=== PATIENT | male | born 1940 | race Caucasian/White ===

== ENCOUNTER → 2017-06-14 | Outpatient (CLI) | payer OTHER | LOC: HYPER 06-13 10:16 | DX: E11.621 Type 2 diabetes mellitus with foot ulcer (principal); L97.521 Non-pressure chronic ulcer of other part of left foot limited to breakdown of skin; E11.610 Type 2 diabetes mellitus with diabetic neuropathic arthropathy; E11.42 Type 2 diabetes mellitus with diabetic polyneuropathy; E11.36 Type 2 diabetes mellitus with diabetic cataract; Z87.891 Personal history of nicotine dependence; Z79.4 Long term (current) use of insulin ==

== ENCOUNTER → 2017-06-27 | Outpatient (CLI) | payer OTHER | LOC: HYPER 07:04 | DX: E11.621 Type 2 diabetes mellitus with foot ulcer (principal); L97.521 Non-pressure chronic ulcer of other part of left foot limited to breakdown of skin; S90.822A Blister (nonthermal), left foot, initial encounter; E11.610 Type 2 diabetes mellitus with diabetic neuropathic arthropathy; E11.36 Type 2 diabetes mellitus with diabetic cataract; Z79.4 Long term (current) use of insulin; Z87.891 Personal history of nicotine dependence; X58.XXXA Exposure to other specified factors, initial encounter; Y93.89 Activity, other specified; Y92.89 Other specified places as the place of occurrence of the external cause; Y99.8 Other external cause status ==

== ENCOUNTER → 2017-07-11 | Outpatient (CLI) | payer OTHER | LOC: HYPER 06:42 | DX: E11.621 Type 2 diabetes mellitus with foot ulcer (principal); L97.521 Non-pressure chronic ulcer of other part of left foot limited to breakdown of skin; E11.610 Type 2 diabetes mellitus with diabetic neuropathic arthropathy; Z79.4 Long term (current) use of insulin; E11.36 Type 2 diabetes mellitus with diabetic cataract; Z87.891 Personal history of nicotine dependence ==

== ENCOUNTER → 2017-08-08 | Outpatient (CLI) | payer OTHER | LOC: HYPER 06:48 | DX: E11.621 Type 2 diabetes mellitus with foot ulcer (principal); L97.521 Non-pressure chronic ulcer of other part of left foot limited to breakdown of skin; E11.610 Type 2 diabetes mellitus with diabetic neuropathic arthropathy; E11.36 Type 2 diabetes mellitus with diabetic cataract; Z79.4 Long term (current) use of insulin; Z86.73 Personal history of transient ischemic attack (TIA), and cerebral infarction without residual deficits; Z87.891 Personal history of nicotine dependence ==

== ENCOUNTER → 2017-08-29 | Outpatient (CLI) | payer OTHER | LOC: HYPER 07:00 | DX: E11.621 Type 2 diabetes mellitus with foot ulcer (principal); L97.521 Non-pressure chronic ulcer of other part of left foot limited to breakdown of skin; S90.521A Blister (nonthermal), right ankle, initial encounter; X58.XXXD Exposure to other specified factors, subsequent encounter; E11.610 Type 2 diabetes mellitus with diabetic neuropathic arthropathy; E11.36 Type 2 diabetes mellitus with diabetic cataract; Z79.4 Long term (current) use of insulin; S90.822D Blister (nonthermal), left foot, subsequent encounter; X58.XXXA Exposure to other specified factors, initial encounter; Y93.89 Activity, other specified; Y92.89 Other specified places as the place of occurrence of the external cause; Y99.8 Other external cause status; Z98.49 Cataract extraction status, unspecified eye; Z87.891 Personal history of nicotine dependence ==

== ENCOUNTER → 2017-09-25 | Outpatient (CLI) | payer OTHER | LOC: HYPER 06:56 | DX: E11.621 Type 2 diabetes mellitus with foot ulcer (principal); L97.521 Non-pressure chronic ulcer of other part of left foot limited to breakdown of skin; E11.610 Type 2 diabetes mellitus with diabetic neuropathic arthropathy; E11.36 Type 2 diabetes mellitus with diabetic cataract; Z79.4 Long term (current) use of insulin; Z86.73 Personal history of transient ischemic attack (TIA), and cerebral infarction without residual deficits; Z87.891 Personal history of nicotine dependence ==

== ENCOUNTER → 2017-10-30 | Outpatient (CLI) | payer OTHER | LOC: HYPER 07:01 | DX: E11.621 Type 2 diabetes mellitus with foot ulcer (principal); L97.521 Non-pressure chronic ulcer of other part of left foot limited to breakdown of skin; E11.610 Type 2 diabetes mellitus with diabetic neuropathic arthropathy; E11.42 Type 2 diabetes mellitus with diabetic polyneuropathy; E11.36 Type 2 diabetes mellitus with diabetic cataract; L03.116 Cellulitis of left lower limb; Z98.49 Cataract extraction status, unspecified eye; Z87.891 Personal history of nicotine dependence; Z79.4 Long term (current) use of insulin ==

== ENCOUNTER → 2018-10-10 | Outpatient (CLI) | payer OTHER | LOC: HYPER 06:32 | DX: E11.621 Type 2 diabetes mellitus with foot ulcer (principal); L97.516 Non-pressure chronic ulcer of other part of right foot with bone involvement without evidence of necrosis; S90.414A Abrasion, right lesser toe(s), initial encounter; E11.610 Type 2 diabetes mellitus with diabetic neuropathic arthropathy; E11.36 Type 2 diabetes mellitus with diabetic cataract; E11.69 Type 2 diabetes mellitus with other specified complication; M86.8X8 Other osteomyelitis, other site; E11.42 Type 2 diabetes mellitus with diabetic polyneuropathy; I25.10 Atherosclerotic heart disease of native coronary artery without angina pectoris; Z87.891 Personal history of nicotine dependence; Z79.4 Long term (current) use of insulin; Z98.49 Cataract extraction status, unspecified eye; Z79.82 Long term (current) use of aspirin; X58.XXXA Exposure to other specified factors, initial encounter; Y93.89 Activity, other specified; Y92.89 Other specified places as the place of occurrence of the external cause; Y99.8 Other external cause status ==

== ENCOUNTER → 2018-10-17 | Outpatient (CLI) | payer OTHER | LOC: HYPER 06:55 | DX: E11.621 Type 2 diabetes mellitus with foot ulcer (principal); L97.512 Non-pressure chronic ulcer of other part of right foot with fat layer exposed; S90.414D Abrasion, right lesser toe(s), subsequent encounter; E11.610 Type 2 diabetes mellitus with diabetic neuropathic arthropathy; E11.42 Type 2 diabetes mellitus with diabetic polyneuropathy; E11.36 Type 2 diabetes mellitus with diabetic cataract; E11.69 Type 2 diabetes mellitus with other specified complication; M86.8X8 Other osteomyelitis, other site; I25.10 Atherosclerotic heart disease of native coronary artery without angina pectoris; Z79.4 Long term (current) use of insulin; Z87.891 Personal history of nicotine dependence; X58.XXXD Exposure to other specified factors, subsequent encounter ==

== ENCOUNTER → 2018-10-28 | Outpatient (CLI) | payer OTHER | LOC: HYPER 07:48 | DX: E11.621 Type 2 diabetes mellitus with foot ulcer (principal); L97.512 Non-pressure chronic ulcer of other part of right foot with fat layer exposed; E11.610 Type 2 diabetes mellitus with diabetic neuropathic arthropathy; E11.42 Type 2 diabetes mellitus with diabetic polyneuropathy; E11.36 Type 2 diabetes mellitus with diabetic cataract; E11.69 Type 2 diabetes mellitus with other specified complication; M86.8X7 Other osteomyelitis, ankle and foot; Z79.4 Long term (current) use of insulin; Z87.891 Personal history of nicotine dependence ==

== ENCOUNTER → 2018-11-05 | Outpatient (CLI) | payer OTHER | LOC: HYPER 06:42 | DX: E11.621 Type 2 diabetes mellitus with foot ulcer (principal); L97.516 Non-pressure chronic ulcer of other part of right foot with bone involvement without evidence of necrosis; S90.821A Blister (nonthermal), right foot, initial encounter; L84 Corns and callosities; E11.610 Type 2 diabetes mellitus with diabetic neuropathic arthropathy; E11.36 Type 2 diabetes mellitus with diabetic cataract; E11.69 Type 2 diabetes mellitus with other specified complication; M86.8X8 Other osteomyelitis, other site; I25.10 Atherosclerotic heart disease of native coronary artery without angina pectoris; Z79.4 Long term (current) use of insulin; Z87.891 Personal history of nicotine dependence; X58.XXXA Exposure to other specified factors, initial encounter; Y93.89 Activity, other specified; Y92.89 Other specified places as the place of occurrence of the external cause; Y99.8 Other external cause status ==

== ENCOUNTER → 2018-11-19 | Outpatient (CLI) | payer OTHER | LOC: HYPER 06:40 → RAD 06:40 → HYPER 15:21 | DX: E11.621 Type 2 diabetes mellitus with foot ulcer (principal); L97.514 Non-pressure chronic ulcer of other part of right foot with necrosis of bone; E11.610 Type 2 diabetes mellitus with diabetic neuropathic arthropathy; E11.69 Type 2 diabetes mellitus with other specified complication; M86.371 Chronic multifocal osteomyelitis, right ankle and foot; L02.611 Cutaneous abscess of right foot; E11.36 Type 2 diabetes mellitus with diabetic cataract; Z87.891 Personal history of nicotine dependence; Z79.4 Long term (current) use of insulin ==

== ENCOUNTER → 2018-11-20 | Outpatient (CLI) | payer OTHER | LOC: HYPER 06:37 | DX: E11.621 Type 2 diabetes mellitus with foot ulcer (principal); L97.514 Non-pressure chronic ulcer of other part of right foot with necrosis of bone; L02.611 Cutaneous abscess of right foot; E11.69 Type 2 diabetes mellitus with other specified complication; M86.371 Chronic multifocal osteomyelitis, right ankle and foot; E11.610 Type 2 diabetes mellitus with diabetic neuropathic arthropathy; E11.36 Type 2 diabetes mellitus with diabetic cataract; I25.10 Atherosclerotic heart disease of native coronary artery without angina pectoris; Z79.4 Long term (current) use of insulin; Z87.891 Personal history of nicotine dependence ==

== ENCOUNTER → 2018-11-21 | Outpatient (CLI) | payer OTHER | LOC: HYPER 06:50 | DX: E11.621 Type 2 diabetes mellitus with foot ulcer (principal); L97.514 Non-pressure chronic ulcer of other part of right foot with necrosis of bone; L02.611 Cutaneous abscess of right foot; E11.610 Type 2 diabetes mellitus with diabetic neuropathic arthropathy; E11.69 Type 2 diabetes mellitus with other specified complication; M86.371 Chronic multifocal osteomyelitis, right ankle and foot; E11.36 Type 2 diabetes mellitus with diabetic cataract; I25.10 Atherosclerotic heart disease of native coronary artery without angina pectoris; Z87.891 Personal history of nicotine dependence; Z79.4 Long term (current) use of insulin ==

== ENCOUNTER → 2018-11-22 | Outpatient (CLI) | payer OTHER | LOC: HYPER 08:00 | DX: E11.621 Type 2 diabetes mellitus with foot ulcer (principal); L97.514 Non-pressure chronic ulcer of other part of right foot with necrosis of bone; L02.611 Cutaneous abscess of right foot; E11.610 Type 2 diabetes mellitus with diabetic neuropathic arthropathy; E11.69 Type 2 diabetes mellitus with other specified complication; M86.371 Chronic multifocal osteomyelitis, right ankle and foot; E11.36 Type 2 diabetes mellitus with diabetic cataract; I25.10 Atherosclerotic heart disease of native coronary artery without angina pectoris; Z87.891 Personal history of nicotine dependence; Z79.4 Long term (current) use of insulin ==

== ENCOUNTER → 2018-11-25 | Outpatient (CLI) | payer OTHER | LOC: HYPER 06:39 | DX: E11.621 Type 2 diabetes mellitus with foot ulcer (principal); L97.514 Non-pressure chronic ulcer of other part of right foot with necrosis of bone; L02.611 Cutaneous abscess of right foot; E11.69 Type 2 diabetes mellitus with other specified complication; M86.371 Chronic multifocal osteomyelitis, right ankle and foot; E11.610 Type 2 diabetes mellitus with diabetic neuropathic arthropathy; E11.36 Type 2 diabetes mellitus with diabetic cataract; I25.10 Atherosclerotic heart disease of native coronary artery without angina pectoris; Z87.891 Personal history of nicotine dependence; Z79.4 Long term (current) use of insulin ==

== ENCOUNTER → 2018-11-26 | Outpatient (CLI) | payer OTHER | LOC: HYPER 06:50 | DX: E11.621 Type 2 diabetes mellitus with foot ulcer (principal); L97.514 Non-pressure chronic ulcer of other part of right foot with necrosis of bone; L02.611 Cutaneous abscess of right foot; E11.610 Type 2 diabetes mellitus with diabetic neuropathic arthropathy; E11.69 Type 2 diabetes mellitus with other specified complication; M86.371 Chronic multifocal osteomyelitis, right ankle and foot; E11.36 Type 2 diabetes mellitus with diabetic cataract; Z79.4 Long term (current) use of insulin; Z87.891 Personal history of nicotine dependence ==

== ENCOUNTER → 2018-11-27 | Outpatient (CLI) | payer OTHER | LOC: HYPER 06:52 | DX: E11.621 Type 2 diabetes mellitus with foot ulcer (principal); L97.514 Non-pressure chronic ulcer of other part of right foot with necrosis of bone; L02.611 Cutaneous abscess of right foot; E11.610 Type 2 diabetes mellitus with diabetic neuropathic arthropathy; E11.69 Type 2 diabetes mellitus with other specified complication; M86.371 Chronic multifocal osteomyelitis, right ankle and foot; E11.36 Type 2 diabetes mellitus with diabetic cataract; I25.10 Atherosclerotic heart disease of native coronary artery without angina pectoris; Z87.891 Personal history of nicotine dependence; Z79.4 Long term (current) use of insulin ==

== ENCOUNTER → 2018-11-28 | Outpatient (CLI) | payer OTHER | LOC: HYPER 06:48 | DX: E11.621 Type 2 diabetes mellitus with foot ulcer (principal); L97.514 Non-pressure chronic ulcer of other part of right foot with necrosis of bone; E11.610 Type 2 diabetes mellitus with diabetic neuropathic arthropathy; E11.69 Type 2 diabetes mellitus with other specified complication; M86.371 Chronic multifocal osteomyelitis, right ankle and foot; E11.36 Type 2 diabetes mellitus with diabetic cataract; L02.611 Cutaneous abscess of right foot; Z87.891 Personal history of nicotine dependence; Z79.4 Long term (current) use of insulin ==

== ENCOUNTER → 2018-11-29 | Outpatient (CLI) | payer OTHER | LOC: HYPER 06:47 | DX: E11.621 Type 2 diabetes mellitus with foot ulcer (principal); L97.514 Non-pressure chronic ulcer of other part of right foot with necrosis of bone; L02.611 Cutaneous abscess of right foot; E11.610 Type 2 diabetes mellitus with diabetic neuropathic arthropathy; E11.69 Type 2 diabetes mellitus with other specified complication; M86.371 Chronic multifocal osteomyelitis, right ankle and foot; E11.36 Type 2 diabetes mellitus with diabetic cataract; Z87.891 Personal history of nicotine dependence; Z79.4 Long term (current) use of insulin ==

== ENCOUNTER → 2018-12-03 | Outpatient (CLI) | payer OTHER | LOC: HYPER 07:01 | DX: E11.621 Type 2 diabetes mellitus with foot ulcer (principal); L97.514 Non-pressure chronic ulcer of other part of right foot with necrosis of bone; L02.611 Cutaneous abscess of right foot; E11.610 Type 2 diabetes mellitus with diabetic neuropathic arthropathy; E11.69 Type 2 diabetes mellitus with other specified complication; M86.371 Chronic multifocal osteomyelitis, right ankle and foot; E11.36 Type 2 diabetes mellitus with diabetic cataract; Z87.891 Personal history of nicotine dependence; Z79.4 Long term (current) use of insulin ==

== ENCOUNTER → 2018-12-04 | Outpatient (CLI) | payer OTHER | LOC: HYPER 06:57 | DX: E11.621 Type 2 diabetes mellitus with foot ulcer (principal); L97.514 Non-pressure chronic ulcer of other part of right foot with necrosis of bone; L02.611 Cutaneous abscess of right foot; E11.610 Type 2 diabetes mellitus with diabetic neuropathic arthropathy; E11.69 Type 2 diabetes mellitus with other specified complication; M86.371 Chronic multifocal osteomyelitis, right ankle and foot; E11.36 Type 2 diabetes mellitus with diabetic cataract; Z87.891 Personal history of nicotine dependence; Z79.4 Long term (current) use of insulin ==

== ENCOUNTER → 2018-12-05 | Outpatient (CLI) | payer OTHER | LOC: HYPER 07:01 | DX: E11.621 Type 2 diabetes mellitus with foot ulcer (principal); L97.514 Non-pressure chronic ulcer of other part of right foot with necrosis of bone; E11.69 Type 2 diabetes mellitus with other specified complication; M86.371 Chronic multifocal osteomyelitis, right ankle and foot; L02.611 Cutaneous abscess of right foot; E11.610 Type 2 diabetes mellitus with diabetic neuropathic arthropathy; E11.36 Type 2 diabetes mellitus with diabetic cataract; Z87.891 Personal history of nicotine dependence; Z79.4 Long term (current) use of insulin ==

== ENCOUNTER → 2018-12-06 | Outpatient (CLI) | payer OTHER | LOC: HYPER 07:02 | DX: E11.621 Type 2 diabetes mellitus with foot ulcer (principal); L97.514 Non-pressure chronic ulcer of other part of right foot with necrosis of bone; L02.611 Cutaneous abscess of right foot; E11.610 Type 2 diabetes mellitus with diabetic neuropathic arthropathy; E11.69 Type 2 diabetes mellitus with other specified complication; M86.371 Chronic multifocal osteomyelitis, right ankle and foot; E11.36 Type 2 diabetes mellitus with diabetic cataract; I25.10 Atherosclerotic heart disease of native coronary artery without angina pectoris; Z87.891 Personal history of nicotine dependence; Z79.4 Long term (current) use of insulin ==

== ENCOUNTER → 2018-12-09 | Outpatient (CLI) | payer OTHER | LOC: HYPER 06:53 | DX: E11.621 Type 2 diabetes mellitus with foot ulcer (principal); L97.514 Non-pressure chronic ulcer of other part of right foot with necrosis of bone; L02.611 Cutaneous abscess of right foot; E11.610 Type 2 diabetes mellitus with diabetic neuropathic arthropathy; E11.69 Type 2 diabetes mellitus with other specified complication; M86.371 Chronic multifocal osteomyelitis, right ankle and foot; E11.36 Type 2 diabetes mellitus with diabetic cataract; Z87.891 Personal history of nicotine dependence; Z79.4 Long term (current) use of insulin ==

== ENCOUNTER → 2018-12-10 | Outpatient (CLI) | payer OTHER | LOC: HYPER 06:44 | DX: E11.621 Type 2 diabetes mellitus with foot ulcer (principal); L97.514 Non-pressure chronic ulcer of other part of right foot with necrosis of bone; L02.611 Cutaneous abscess of right foot; E11.610 Type 2 diabetes mellitus with diabetic neuropathic arthropathy; E11.69 Type 2 diabetes mellitus with other specified complication; M86.371 Chronic multifocal osteomyelitis, right ankle and foot; E11.36 Type 2 diabetes mellitus with diabetic cataract; I25.10 Atherosclerotic heart disease of native coronary artery without angina pectoris; Z79.4 Long term (current) use of insulin; Z87.891 Personal history of nicotine dependence ==

== ENCOUNTER → 2018-12-11 | Outpatient (CLI) | payer OTHER | LOC: HYPER 06:52 | DX: E11.621 Type 2 diabetes mellitus with foot ulcer (principal); L97.514 Non-pressure chronic ulcer of other part of right foot with necrosis of bone; E11.610 Type 2 diabetes mellitus with diabetic neuropathic arthropathy; E11.69 Type 2 diabetes mellitus with other specified complication; M86.371 Chronic multifocal osteomyelitis, right ankle and foot; L02.611 Cutaneous abscess of right foot; E11.36 Type 2 diabetes mellitus with diabetic cataract; Z87.891 Personal history of nicotine dependence; Z79.4 Long term (current) use of insulin ==

== ENCOUNTER → 2018-12-12 | Outpatient (CLI) | payer OTHER | LOC: HYPER 06:40 | DX: E11.621 Type 2 diabetes mellitus with foot ulcer (principal); L97.514 Non-pressure chronic ulcer of other part of right foot with necrosis of bone; L02.611 Cutaneous abscess of right foot; E11.610 Type 2 diabetes mellitus with diabetic neuropathic arthropathy; E11.69 Type 2 diabetes mellitus with other specified complication; M86.371 Chronic multifocal osteomyelitis, right ankle and foot; E11.36 Type 2 diabetes mellitus with diabetic cataract; Z87.891 Personal history of nicotine dependence; Z79.4 Long term (current) use of insulin ==

== ENCOUNTER → 2018-12-13 | Outpatient (CLI) | payer OTHER | LOC: HYPER 06:59 | DX: E11.621 Type 2 diabetes mellitus with foot ulcer (principal); L97.514 Non-pressure chronic ulcer of other part of right foot with necrosis of bone; L02.611 Cutaneous abscess of right foot; E11.610 Type 2 diabetes mellitus with diabetic neuropathic arthropathy; E11.69 Type 2 diabetes mellitus with other specified complication; M86.371 Chronic multifocal osteomyelitis, right ankle and foot; E11.36 Type 2 diabetes mellitus with diabetic cataract; Z87.891 Personal history of nicotine dependence; Z79.4 Long term (current) use of insulin ==

== ENCOUNTER → 2018-12-16 | Outpatient (CLI) | payer OTHER | LOC: HYPER 06:47 | DX: E11.621 Type 2 diabetes mellitus with foot ulcer (principal); L97.514 Non-pressure chronic ulcer of other part of right foot with necrosis of bone; L02.611 Cutaneous abscess of right foot; E11.610 Type 2 diabetes mellitus with diabetic neuropathic arthropathy; E11.69 Type 2 diabetes mellitus with other specified complication; M86.371 Chronic multifocal osteomyelitis, right ankle and foot; E11.36 Type 2 diabetes mellitus with diabetic cataract; Z87.891 Personal history of nicotine dependence; Z79.4 Long term (current) use of insulin ==

== ENCOUNTER → 2018-12-17 | Outpatient (CLI) | payer OTHER | LOC: HYPER 07:10 | DX: E11.621 Type 2 diabetes mellitus with foot ulcer (principal); L97.514 Non-pressure chronic ulcer of other part of right foot with necrosis of bone; L02.611 Cutaneous abscess of right foot; E11.610 Type 2 diabetes mellitus with diabetic neuropathic arthropathy; E11.69 Type 2 diabetes mellitus with other specified complication; M86.371 Chronic multifocal osteomyelitis, right ankle and foot; E11.36 Type 2 diabetes mellitus with diabetic cataract; Z87.891 Personal history of nicotine dependence; Z79.4 Long term (current) use of insulin ==

== ENCOUNTER → 2019-01-02 | Outpatient (CLI) | payer OTHER | LOC: HYPER 12-26 07:21 | DX: E11.621 Type 2 diabetes mellitus with foot ulcer (principal); L97.514 Non-pressure chronic ulcer of other part of right foot with necrosis of bone; E11.42 Type 2 diabetes mellitus with diabetic polyneuropathy; E11.610 Type 2 diabetes mellitus with diabetic neuropathic arthropathy; E11.69 Type 2 diabetes mellitus with other specified complication; M86.371 Chronic multifocal osteomyelitis, right ankle and foot; E11.36 Type 2 diabetes mellitus with diabetic cataract; Z87.891 Personal history of nicotine dependence; Z79.4 Long term (current) use of insulin ==

== ENCOUNTER → 2019-02-10 | Outpatient (CLI) | payer OTHER | LOC: HYPER 04:56 | DX: E11.621 Type 2 diabetes mellitus with foot ulcer (principal); L97.514 Non-pressure chronic ulcer of other part of right foot with necrosis of bone; L97.522 Non-pressure chronic ulcer of other part of left foot with fat layer exposed; E11.610 Type 2 diabetes mellitus with diabetic neuropathic arthropathy; E11.69 Type 2 diabetes mellitus with other specified complication; M86.371 Chronic multifocal osteomyelitis, right ankle and foot; L02.611 Cutaneous abscess of right foot; E11.36 Type 2 diabetes mellitus with diabetic cataract; L84 Corns and callosities; Z79.4 Long term (current) use of insulin; Z87.891 Personal history of nicotine dependence ==

== ENCOUNTER → 2019-03-03 | Outpatient (CLI) | payer OTHER | LOC: HYPER 12:52 | DX: E11.621 Type 2 diabetes mellitus with foot ulcer (principal); L97.514 Non-pressure chronic ulcer of other part of right foot with necrosis of bone; L97.522 Non-pressure chronic ulcer of other part of left foot with fat layer exposed; E11.610 Type 2 diabetes mellitus with diabetic neuropathic arthropathy; E11.40 Type 2 diabetes mellitus with diabetic neuropathy, unspecified; E11.69 Type 2 diabetes mellitus with other specified complication; M86.371 Chronic multifocal osteomyelitis, right ankle and foot; E11.36 Type 2 diabetes mellitus with diabetic cataract; L84 Corns and callosities; Z79.4 Long term (current) use of insulin; Z87.891 Personal history of nicotine dependence ==

== ENCOUNTER → 2019-03-28 | Outpatient (CLI) | payer OTHER | LOC: HYPER 08:43 | DX: E11.621 Type 2 diabetes mellitus with foot ulcer (principal); L97.514 Non-pressure chronic ulcer of other part of right foot with necrosis of bone; L97.522 Non-pressure chronic ulcer of other part of left foot with fat layer exposed; L02.611 Cutaneous abscess of right foot; E11.42 Type 2 diabetes mellitus with diabetic polyneuropathy; L84 Corns and callosities; E11.610 Type 2 diabetes mellitus with diabetic neuropathic arthropathy; M86.371 Chronic multifocal osteomyelitis, right ankle and foot; E11.36 Type 2 diabetes mellitus with diabetic cataract; Z87.891 Personal history of nicotine dependence; Z79.4 Long term (current) use of insulin ==

== ENCOUNTER → 2019-04-08 | Outpatient (CLI) | payer OTHER | LOC: HYPER 08:47 | DX: E11.621 Type 2 diabetes mellitus with foot ulcer (principal); L97.514 Non-pressure chronic ulcer of other part of right foot with necrosis of bone; L97.522 Non-pressure chronic ulcer of other part of left foot with fat layer exposed; L02.611 Cutaneous abscess of right foot; E11.42 Type 2 diabetes mellitus with diabetic polyneuropathy; L84 Corns and callosities; E11.610 Type 2 diabetes mellitus with diabetic neuropathic arthropathy; E11.69 Type 2 diabetes mellitus with other specified complication; M86.371 Chronic multifocal osteomyelitis, right ankle and foot; I25.10 Atherosclerotic heart disease of native coronary artery without angina pectoris; E11.36 Type 2 diabetes mellitus with diabetic cataract; Z87.891 Personal history of nicotine dependence; Z79.4 Long term (current) use of insulin; Z79.82 Long term (current) use of aspirin ==

== ENCOUNTER → 2019-04-25 | Outpatient (CLI) | payer OTHER | LOC: HYPER 10:29 | DX: E11.621 Type 2 diabetes mellitus with foot ulcer (principal); L97.514 Non-pressure chronic ulcer of other part of right foot with necrosis of bone; L97.522 Non-pressure chronic ulcer of other part of left foot with fat layer exposed; L02.611 Cutaneous abscess of right foot; L84 Corns and callosities; E11.610 Type 2 diabetes mellitus with diabetic neuropathic arthropathy; S90.821D Blister (nonthermal), right foot, subsequent encounter; E11.69 Type 2 diabetes mellitus with other specified complication; M86.371 Chronic multifocal osteomyelitis, right ankle and foot; E11.36 Type 2 diabetes mellitus with diabetic cataract; I25.10 Atherosclerotic heart disease of native coronary artery without angina pectoris; Z87.891 Personal history of nicotine dependence; Z79.4 Long term (current) use of insulin; X58.XXXD Exposure to other specified factors, subsequent encounter ==

== ENCOUNTER → 2019-05-05 | Outpatient (CLI) | payer OTHER | LOC: HYPER 13:16 | DX: E11.621 Type 2 diabetes mellitus with foot ulcer (principal); L97.514 Non-pressure chronic ulcer of other part of right foot with necrosis of bone; L97.522 Non-pressure chronic ulcer of other part of left foot with fat layer exposed; E11.610 Type 2 diabetes mellitus with diabetic neuropathic arthropathy; L02.611 Cutaneous abscess of right foot; L84 Corns and callosities; E11.42 Type 2 diabetes mellitus with diabetic polyneuropathy; E11.69 Type 2 diabetes mellitus with other specified complication; M86.371 Chronic multifocal osteomyelitis, right ankle and foot; E11.36 Type 2 diabetes mellitus with diabetic cataract; Z87.891 Personal history of nicotine dependence; Z79.4 Long term (current) use of insulin; Z79.82 Long term (current) use of aspirin ==

== ENCOUNTER → 2019-05-27 | Outpatient (CLI) | payer OTHER | LOC: HYPER 10:04 | DX: E11.621 Type 2 diabetes mellitus with foot ulcer (principal); L97.514 Non-pressure chronic ulcer of other part of right foot with necrosis of bone; L02.612 Cutaneous abscess of left foot; L02.611 Cutaneous abscess of right foot; E11.610 Type 2 diabetes mellitus with diabetic neuropathic arthropathy; E11.42 Type 2 diabetes mellitus with diabetic polyneuropathy; L84 Corns and callosities; E11.69 Type 2 diabetes mellitus with other specified complication; M86.371 Chronic multifocal osteomyelitis, right ankle and foot; E11.36 Type 2 diabetes mellitus with diabetic cataract; Z87.891 Personal history of nicotine dependence; Z79.4 Long term (current) use of insulin; Z79.82 Long term (current) use of aspirin ==

== ENCOUNTER → 2019-06-04 | Outpatient (CLI) | payer OTHER | LOC: HYPER 09:28 | DX: E11.621 Type 2 diabetes mellitus with foot ulcer (principal); L97.514 Non-pressure chronic ulcer of other part of right foot with necrosis of bone; L97.522 Non-pressure chronic ulcer of other part of left foot with fat layer exposed; L03.116 Cellulitis of left lower limb; L02.611 Cutaneous abscess of right foot; E11.42 Type 2 diabetes mellitus with diabetic polyneuropathy; L84 Corns and callosities; E11.610 Type 2 diabetes mellitus with diabetic neuropathic arthropathy; E11.69 Type 2 diabetes mellitus with other specified complication; M86.371 Chronic multifocal osteomyelitis, right ankle and foot; E11.36 Type 2 diabetes mellitus with diabetic cataract; Z87.891 Personal history of nicotine dependence; Z79.4 Long term (current) use of insulin ==

== ENCOUNTER → 2019-06-13 | Outpatient (CLI) | payer OTHER | LOC: HYPER 10:10 | DX: E11.621 Type 2 diabetes mellitus with foot ulcer (principal); L97.514 Non-pressure chronic ulcer of other part of right foot with necrosis of bone; L97.522 Non-pressure chronic ulcer of other part of left foot with fat layer exposed; L02.611 Cutaneous abscess of right foot; E11.42 Type 2 diabetes mellitus with diabetic polyneuropathy; L84 Corns and callosities; E11.610 Type 2 diabetes mellitus with diabetic neuropathic arthropathy; E11.69 Type 2 diabetes mellitus with other specified complication; M86.371 Chronic multifocal osteomyelitis, right ankle and foot; E11.36 Type 2 diabetes mellitus with diabetic cataract; Z79.4 Long term (current) use of insulin; Z87.891 Personal history of nicotine dependence; Z79.82 Long term (current) use of aspirin ==

== ENCOUNTER → 2019-06-23 | Outpatient (CLI) | payer OTHER | LOC: HYPER 10:00 | DX: E11.621 Type 2 diabetes mellitus with foot ulcer (principal); L97.514 Non-pressure chronic ulcer of other part of right foot with necrosis of bone; L97.522 Non-pressure chronic ulcer of other part of left foot with fat layer exposed; L02.611 Cutaneous abscess of right foot; E11.610 Type 2 diabetes mellitus with diabetic neuropathic arthropathy; E11.42 Type 2 diabetes mellitus with diabetic polyneuropathy; L84 Corns and callosities; E11.69 Type 2 diabetes mellitus with other specified complication; M86.371 Chronic multifocal osteomyelitis, right ankle and foot; E11.36 Type 2 diabetes mellitus with diabetic cataract; Z87.891 Personal history of nicotine dependence; Z79.4 Long term (current) use of insulin ==

== ENCOUNTER → 2019-06-30 | Outpatient (CLI) | payer OTHER | LOC: HYPER 10:28 | DX: E11.621 Type 2 diabetes mellitus with foot ulcer (principal); L97.514 Non-pressure chronic ulcer of other part of right foot with necrosis of bone; L97.522 Non-pressure chronic ulcer of other part of left foot with fat layer exposed; L02.611 Cutaneous abscess of right foot; L84 Corns and callosities; S90.821D Blister (nonthermal), right foot, subsequent encounter; E11.610 Type 2 diabetes mellitus with diabetic neuropathic arthropathy; E11.69 Type 2 diabetes mellitus with other specified complication; M86.371 Chronic multifocal osteomyelitis, right ankle and foot; E11.36 Type 2 diabetes mellitus with diabetic cataract; E11.42 Type 2 diabetes mellitus with diabetic polyneuropathy; I25.10 Atherosclerotic heart disease of native coronary artery without angina pectoris; Z87.891 Personal history of nicotine dependence; Z79.4 Long term (current) use of insulin ==

== ENCOUNTER → 2019-07-16 | Outpatient (CLI) | payer OTHER | LOC: HYPER 09:56 | DX: E11.621 Type 2 diabetes mellitus with foot ulcer (principal); L97.514 Non-pressure chronic ulcer of other part of right foot with necrosis of bone; L97.522 Non-pressure chronic ulcer of other part of left foot with fat layer exposed; S90.821D Blister (nonthermal), right foot, subsequent encounter; L02.611 Cutaneous abscess of right foot; L84 Corns and callosities; E11.610 Type 2 diabetes mellitus with diabetic neuropathic arthropathy; E11.69 Type 2 diabetes mellitus with other specified complication; M86.371 Chronic multifocal osteomyelitis, right ankle and foot; E11.36 Type 2 diabetes mellitus with diabetic cataract; E11.42 Type 2 diabetes mellitus with diabetic polyneuropathy; I25.10 Atherosclerotic heart disease of native coronary artery without angina pectoris; Z87.891 Personal history of nicotine dependence; Z79.4 Long term (current) use of insulin; X58.XXXD Exposure to other specified factors, subsequent encounter ==

== ENCOUNTER → 2019-07-29 | Outpatient (CLI) | payer OTHER | LOC: HYPER 10:27 | DX: E11.621 Type 2 diabetes mellitus with foot ulcer (principal); L97.514 Non-pressure chronic ulcer of other part of right foot with necrosis of bone; L97.522 Non-pressure chronic ulcer of other part of left foot with fat layer exposed; S90.821D Blister (nonthermal), right foot, subsequent encounter; L02.611 Cutaneous abscess of right foot; L84 Corns and callosities; E11.610 Type 2 diabetes mellitus with diabetic neuropathic arthropathy; E11.69 Type 2 diabetes mellitus with other specified complication; M86.371 Chronic multifocal osteomyelitis, right ankle and foot; E11.42 Type 2 diabetes mellitus with diabetic polyneuropathy; E11.36 Type 2 diabetes mellitus with diabetic cataract; I25.10 Atherosclerotic heart disease of native coronary artery without angina pectoris; Z87.891 Personal history of nicotine dependence; Z79.4 Long term (current) use of insulin; X58.XXXD Exposure to other specified factors, subsequent encounter ==

== ENCOUNTER → 2019-08-12 | Outpatient (CLI) | payer OTHER | LOC: HYPER 10:56 | DX: E11.621 Type 2 diabetes mellitus with foot ulcer (principal); L97.514 Non-pressure chronic ulcer of other part of right foot with necrosis of bone; L97.521 Non-pressure chronic ulcer of other part of left foot limited to breakdown of skin; S90.821D Blister (nonthermal), right foot, subsequent encounter; L02.611 Cutaneous abscess of right foot; L84 Corns and callosities; E11.610 Type 2 diabetes mellitus with diabetic neuropathic arthropathy; E11.69 Type 2 diabetes mellitus with other specified complication; M86.371 Chronic multifocal osteomyelitis, right ankle and foot; E11.36 Type 2 diabetes mellitus with diabetic cataract; E11.42 Type 2 diabetes mellitus with diabetic polyneuropathy; I25.10 Atherosclerotic heart disease of native coronary artery without angina pectoris; Z87.891 Personal history of nicotine dependence; Z79.4 Long term (current) use of insulin; X58.XXXD Exposure to other specified factors, subsequent encounter ==

== ENCOUNTER → 2019-09-08 | Outpatient (CLI) | payer OTHER | LOC: HYPER 13:49 | PROVIDERS: ATTEND Emergency Medicine | DX: E11.621 Type 2 diabetes mellitus with foot ulcer (principal); L97.514 Non-pressure chronic ulcer of other part of right foot with necrosis of bone; L97.522 Non-pressure chronic ulcer of other part of left foot with fat layer exposed; L84 Corns and callosities; S90.821D Blister (nonthermal), right foot, subsequent encounter; E11.610 Type 2 diabetes mellitus with diabetic neuropathic arthropathy; E11.36 Type 2 diabetes mellitus with diabetic cataract; E11.69 Type 2 diabetes mellitus with other specified complication; M86.371 Chronic multifocal osteomyelitis, right ankle and foot; E11.42 Type 2 diabetes mellitus with diabetic polyneuropathy; I25.10 Atherosclerotic heart disease of native coronary artery without angina pectoris; Z79.4 Long term (current) use of insulin; Z87.891 Personal history of nicotine dependence ==

== ENCOUNTER → 2019-09-22 | Outpatient (CLI) | payer OTHER | LOC: HYPER 13:46 | PROVIDERS: ATTEND Emergency Medicine | DX: E11.621 Type 2 diabetes mellitus with foot ulcer (principal); L97.514 Non-pressure chronic ulcer of other part of right foot with necrosis of bone; L97.522 Non-pressure chronic ulcer of other part of left foot with fat layer exposed; S90.821D Blister (nonthermal), right foot, subsequent encounter; E11.42 Type 2 diabetes mellitus with diabetic polyneuropathy; E11.610 Type 2 diabetes mellitus with diabetic neuropathic arthropathy; L84 Corns and callosities; E11.69 Type 2 diabetes mellitus with other specified complication; M86.371 Chronic multifocal osteomyelitis, right ankle and foot; R21 Rash and other nonspecific skin eruption; E29.1 Testicular hypofunction; E11.36 Type 2 diabetes mellitus with diabetic cataract; Z87.891 Personal history of nicotine dependence; Z79.4 Long term (current) use of insulin; Z79.82 Long term (current) use of aspirin; X58.XXXD Exposure to other specified factors, subsequent encounter ==

== ENCOUNTER → 2019-10-08 | Outpatient (CLI) | payer OTHER | LOC: HYPER 13:53 | PROVIDERS: ATTEND Emergency Medicine | DX: E11.621 Type 2 diabetes mellitus with foot ulcer (principal); L97.514 Non-pressure chronic ulcer of other part of right foot with necrosis of bone; L97.522 Non-pressure chronic ulcer of other part of left foot with fat layer exposed; L84 Corns and callosities; S90.821D Blister (nonthermal), right foot, subsequent encounter; R21 Rash and other nonspecific skin eruption; E11.42 Type 2 diabetes mellitus with diabetic polyneuropathy; E11.610 Type 2 diabetes mellitus with diabetic neuropathic arthropathy; E11.69 Type 2 diabetes mellitus with other specified complication; M86.371 Chronic multifocal osteomyelitis, right ankle and foot; E11.36 Type 2 diabetes mellitus with diabetic cataract; Z79.4 Long term (current) use of insulin; Z87.81 Personal history of (healed) traumatic fracture; Z79.82 Long term (current) use of aspirin; X58.XXXD Exposure to other specified factors, subsequent encounter ==

== ENCOUNTER → 2019-10-22 | Outpatient (CLI) | payer OTHER | LOC: HYPER 08:54 | PROVIDERS: ATTEND Emergency Medicine | DX: E11.621 Type 2 diabetes mellitus with foot ulcer (principal); L97.514 Non-pressure chronic ulcer of other part of right foot with necrosis of bone; L97.522 Non-pressure chronic ulcer of other part of left foot with fat layer exposed; S90.821D Blister (nonthermal), right foot, subsequent encounter; E11.42 Type 2 diabetes mellitus with diabetic polyneuropathy; L84 Corns and callosities; E11.610 Type 2 diabetes mellitus with diabetic neuropathic arthropathy; E11.69 Type 2 diabetes mellitus with other specified complication; M86.371 Chronic multifocal osteomyelitis, right ankle and foot; E11.36 Type 2 diabetes mellitus with diabetic cataract; Z87.891 Personal history of nicotine dependence; Z79.4 Long term (current) use of insulin; X58.XXXD Exposure to other specified factors, subsequent encounter ==

== ENCOUNTER → 2019-11-27 | Outpatient (CLI) | payer OTHER | LOC: HYPER 11:13 | PROVIDERS: ATTEND Emergency Medicine | DX: E11.621 Type 2 diabetes mellitus with foot ulcer (principal); L97.514 Non-pressure chronic ulcer of other part of right foot with necrosis of bone; L97.522 Non-pressure chronic ulcer of other part of left foot with fat layer exposed; S90.821D Blister (nonthermal), right foot, subsequent encounter; L84 Corns and callosities; E11.610 Type 2 diabetes mellitus with diabetic neuropathic arthropathy; E11.69 Type 2 diabetes mellitus with other specified complication; M86.371 Chronic multifocal osteomyelitis, right ankle and foot; E11.36 Type 2 diabetes mellitus with diabetic cataract; E11.42 Type 2 diabetes mellitus with diabetic polyneuropathy; I25.10 Atherosclerotic heart disease of native coronary artery without angina pectoris; Z87.891 Personal history of nicotine dependence; Z79.4 Long term (current) use of insulin ==

== ENCOUNTER → 2019-12-10 | Outpatient (CLI) | payer OTHER | LOC: HYPER 14:26 | PROVIDERS: ATTEND Emergency Medicine | DX: E11.621 Type 2 diabetes mellitus with foot ulcer (principal); L97.514 Non-pressure chronic ulcer of other part of right foot with necrosis of bone; L97.522 Non-pressure chronic ulcer of other part of left foot with fat layer exposed; S90.821D Blister (nonthermal), right foot, subsequent encounter; L84 Corns and callosities; E11.610 Type 2 diabetes mellitus with diabetic neuropathic arthropathy; E11.69 Type 2 diabetes mellitus with other specified complication; M86.371 Chronic multifocal osteomyelitis, right ankle and foot; E11.42 Type 2 diabetes mellitus with diabetic polyneuropathy; E11.36 Type 2 diabetes mellitus with diabetic cataract; I25.10 Atherosclerotic heart disease of native coronary artery without angina pectoris; Z79.4 Long term (current) use of insulin; Z87.891 Personal history of nicotine dependence; X58.XXXD Exposure to other specified factors, subsequent encounter ==

== ENCOUNTER → 2019-12-24 | Outpatient (CLI) | payer OTHER | LOC: HYPER 12:18 | PROVIDERS: ATTEND Emergency Medicine | DX: E11.621 Type 2 diabetes mellitus with foot ulcer (principal); L97.514 Non-pressure chronic ulcer of other part of right foot with necrosis of bone; E11.610 Type 2 diabetes mellitus with diabetic neuropathic arthropathy; L97.522 Non-pressure chronic ulcer of other part of left foot with fat layer exposed; S90.821D Blister (nonthermal), right foot, subsequent encounter; L84 Corns and callosities; E11.69 Type 2 diabetes mellitus with other specified complication; M86.371 Chronic multifocal osteomyelitis, right ankle and foot; E11.36 Type 2 diabetes mellitus with diabetic cataract; E11.42 Type 2 diabetes mellitus with diabetic polyneuropathy; Z87.891 Personal history of nicotine dependence; Z79.4 Long term (current) use of insulin; X58.XXXD Exposure to other specified factors, subsequent encounter ==

== ENCOUNTER → 2020-01-07 | Outpatient (CLI) | payer OTHER | LOC: HYPER 13:31 | PROVIDERS: ATTEND Emergency Medicine | DX: E11.621 Type 2 diabetes mellitus with foot ulcer (principal); L97.514 Non-pressure chronic ulcer of other part of right foot with necrosis of bone; S90.821D Blister (nonthermal), right foot, subsequent encounter; L84 Corns and callosities; E11.610 Type 2 diabetes mellitus with diabetic neuropathic arthropathy; E11.42 Type 2 diabetes mellitus with diabetic polyneuropathy; E11.36 Type 2 diabetes mellitus with diabetic cataract; E11.69 Type 2 diabetes mellitus with other specified complication; M86.371 Chronic multifocal osteomyelitis, right ankle and foot; E66.9 Obesity, unspecified; I25.10 Atherosclerotic heart disease of native coronary artery without angina pectoris; Z68.32 Body mass index [BMI] 32.0-32.9, adult; Z87.891 Personal history of nicotine dependence; Z79.4 Long term (current) use of insulin; X58.XXXD Exposure to other specified factors, subsequent encounter ==

== ENCOUNTER → 2020-01-21 | Outpatient (CLI) | payer OTHER | LOC: HYPER 08:53 | PROVIDERS: ATTEND Emergency Medicine | DX: E11.621 Type 2 diabetes mellitus with foot ulcer (principal); L97.514 Non-pressure chronic ulcer of other part of right foot with necrosis of bone; S90.821D Blister (nonthermal), right foot, subsequent encounter; L84 Corns and callosities; E11.610 Type 2 diabetes mellitus with diabetic neuropathic arthropathy; E11.42 Type 2 diabetes mellitus with diabetic polyneuropathy; E11.69 Type 2 diabetes mellitus with other specified complication; M86.371 Chronic multifocal osteomyelitis, right ankle and foot; E11.36 Type 2 diabetes mellitus with diabetic cataract; E66.9 Obesity, unspecified; I25.10 Atherosclerotic heart disease of native coronary artery without angina pectoris; Z68.32 Body mass index [BMI] 32.0-32.9, adult; Z79.4 Long term (current) use of insulin; Z87.891 Personal history of nicotine dependence ==

== ENCOUNTER → 2020-02-04 | Outpatient (CLI) | payer OTHER | LOC: HYPER 10:16 | PROVIDERS: ATTEND Emergency Medicine | DX: E11.621 Type 2 diabetes mellitus with foot ulcer (principal); L97.514 Non-pressure chronic ulcer of other part of right foot with necrosis of bone; S90.821D Blister (nonthermal), right foot, subsequent encounter; L84 Corns and callosities; E11.610 Type 2 diabetes mellitus with diabetic neuropathic arthropathy; E11.69 Type 2 diabetes mellitus with other specified complication; M86.371 Chronic multifocal osteomyelitis, right ankle and foot; E11.36 Type 2 diabetes mellitus with diabetic cataract; E11.42 Type 2 diabetes mellitus with diabetic polyneuropathy; E66.9 Obesity, unspecified; I25.10 Atherosclerotic heart disease of native coronary artery without angina pectoris; Z79.4 Long term (current) use of insulin; Z87.891 Personal history of nicotine dependence; Z68.32 Body mass index [BMI] 32.0-32.9, adult; X58.XXXD Exposure to other specified factors, subsequent encounter ==

== ENCOUNTER → 2020-02-18 | Outpatient (CLI) | payer OTHER | LOC: HYPER 13:53 | PROVIDERS: ATTEND Emergency Medicine | DX: E11.621 Type 2 diabetes mellitus with foot ulcer (principal); L97.514 Non-pressure chronic ulcer of other part of right foot with necrosis of bone; S90.821D Blister (nonthermal), right foot, subsequent encounter; L84 Corns and callosities; E11.610 Type 2 diabetes mellitus with diabetic neuropathic arthropathy; E11.69 Type 2 diabetes mellitus with other specified complication; M86.371 Chronic multifocal osteomyelitis, right ankle and foot; E11.36 Type 2 diabetes mellitus with diabetic cataract; E11.42 Type 2 diabetes mellitus with diabetic polyneuropathy; E66.9 Obesity, unspecified; I25.10 Atherosclerotic heart disease of native coronary artery without angina pectoris; Z79.4 Long term (current) use of insulin; Z87.891 Personal history of nicotine dependence; Z68.32 Body mass index [BMI] 32.0-32.9, adult; X58.XXXD Exposure to other specified factors, subsequent encounter ==

== ENCOUNTER → 2020-03-19 | Outpatient (CLI) | payer OTHER | LOC: HYPER 03-18 15:52 | PROVIDERS: ATTEND Emergency Medicine Emergency Medical Services | DX: E11.621 Type 2 diabetes mellitus with foot ulcer (principal); L97.514 Non-pressure chronic ulcer of other part of right foot with necrosis of bone; S90.821D Blister (nonthermal), right foot, subsequent encounter; E11.610 Type 2 diabetes mellitus with diabetic neuropathic arthropathy; E11.69 Type 2 diabetes mellitus with other specified complication; M86.371 Chronic multifocal osteomyelitis, right ankle and foot; E11.42 Type 2 diabetes mellitus with diabetic polyneuropathy; L84 Corns and callosities; E11.36 Type 2 diabetes mellitus with diabetic cataract; Z87.891 Personal history of nicotine dependence; Z79.4 Long term (current) use of insulin; Z79.82 Long term (current) use of aspirin; X58.XXXD Exposure to other specified factors, subsequent encounter ==

== ENCOUNTER → 2020-05-25 | Outpatient (CLI) | payer OTHER | LOC: HYPER 14:14 | PROVIDERS: ATTEND Emergency Medicine | DX: E11.621 Type 2 diabetes mellitus with foot ulcer (principal); L97.514 Non-pressure chronic ulcer of other part of right foot with necrosis of bone; S90.821D Blister (nonthermal), right foot, subsequent encounter; L84 Corns and callosities; E11.610 Type 2 diabetes mellitus with diabetic neuropathic arthropathy; E11.69 Type 2 diabetes mellitus with other specified complication; M86.371 Chronic multifocal osteomyelitis, right ankle and foot; E11.42 Type 2 diabetes mellitus with diabetic polyneuropathy; E11.36 Type 2 diabetes mellitus with diabetic cataract; I25.10 Atherosclerotic heart disease of native coronary artery without angina pectoris; Z87.891 Personal history of nicotine dependence; Z79.4 Long term (current) use of insulin; Z79.82 Long term (current) use of aspirin; X58.XXXD Exposure to other specified factors, subsequent encounter ==

== ENCOUNTER → 2020-06-02 | Outpatient (CLI) | payer OTHER | LOC: HYPER 15:41 | PROVIDERS: ATTEND Emergency Medicine | DX: E11.621 Type 2 diabetes mellitus with foot ulcer (principal); L97.514 Non-pressure chronic ulcer of other part of right foot with necrosis of bone; S90.821D Blister (nonthermal), right foot, subsequent encounter; L84 Corns and callosities; E11.610 Type 2 diabetes mellitus with diabetic neuropathic arthropathy; E11.69 Type 2 diabetes mellitus with other specified complication; M86.371 Chronic multifocal osteomyelitis, right ankle and foot; E11.42 Type 2 diabetes mellitus with diabetic polyneuropathy; E11.36 Type 2 diabetes mellitus with diabetic cataract; I25.10 Atherosclerotic heart disease of native coronary artery without angina pectoris; Z87.891 Personal history of nicotine dependence; Z79.4 Long term (current) use of insulin; Z79.82 Long term (current) use of aspirin; X58.XXXD Exposure to other specified factors, subsequent encounter ==

== ENCOUNTER → 2020-06-08 | Outpatient (CLI) | payer OTHER | LOC: HYPER 13:56 | PROVIDERS: ATTEND Emergency Medicine | DX: E11.621 Type 2 diabetes mellitus with foot ulcer (principal); L97.514 Non-pressure chronic ulcer of other part of right foot with necrosis of bone; S90.821D Blister (nonthermal), right foot, subsequent encounter; E11.42 Type 2 diabetes mellitus with diabetic polyneuropathy; E11.610 Type 2 diabetes mellitus with diabetic neuropathic arthropathy; E11.69 Type 2 diabetes mellitus with other specified complication; M86.371 Chronic multifocal osteomyelitis, right ankle and foot; L84 Corns and callosities; E11.36 Type 2 diabetes mellitus with diabetic cataract; Z79.4 Long term (current) use of insulin; Z87.891 Personal history of nicotine dependence; Z79.82 Long term (current) use of aspirin; Z79.899 Other long term (current) drug therapy; X58.XXXD Exposure to other specified factors, subsequent encounter ==

== ENCOUNTER → 2020-06-15 | Outpatient (CLI) | payer OTHER | LOC: HYPER 11:12 → MRI 13:02 | PROVIDERS: ATTEND Emergency Medicine | DX: E11.621 Type 2 diabetes mellitus with foot ulcer (principal); L97.514 Non-pressure chronic ulcer of other part of right foot with necrosis of bone; M86.171 Other acute osteomyelitis, right ankle and foot ==